=== PATIENT | female | born 1960 | race Caucasian/White ===

== ENCOUNTER → 2021-05-12 | Outpatient (CLI) | payer OTHER ==
--- NOTE | 2021-05-12 13:43 | RAD ---
EXAM: Lumbar spine, 2 views. HISTORY: Pain. COMPARISON: None. FINDINGS: 2 views of the lumbar spine are obtained. There is no significant listhesis. The vertebral bodies are normal in height. There is mild multilevel endplate remodeling. There are few endplate Eulogio morl's nodes. There is suspected bone demineralization. IMPRESSION: 1. Mild multilevel degenerative change. 2. Bone demineralization. Electronically signed by: Litzy Mitchell MD (05/12/2021 1:41 PM) [id number]
--- NOTE | 2021-05-12 13:44 | RAD ---
EXAM: Left ankle, 2 views. HISTORY: Pain. COMPARISON: None. FINDINGS: 2 views of the left ankle are obtained. There is a small ossicle inferior to the lateral ma lleolus. Given the absence of significant overlying soft tissue swelling, this is likely due to a chr onic nonunited avulsion fracture fragment. The ankle mortise is intact. There is no osteochondral les ion. There is a tiny plantar spur. IMPRESSION: 1. 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 2. Tiny plantar spur. Electronically signed by: Litzy Mitchell MD (05/12/2021 1:42 PM) [id number]
== END ==
LOC: RAD 12:58
PROVIDERS: ATTEND Family Medicine
DX: Z02.71 Encounter for disability determination (principal); M47.816 Spondylosis without myelopathy or radiculopathy, lumbar region; M81.8 Other osteoporosis without current pathological fracture; M51.46 Schmorl's nodes, lumbar region; M79.89 Other specified soft tissue disorders
CPT/HCPCS: 72100; 73600